=== PATIENT | female | born 1985 | race Caucasian/White ===

== ENCOUNTER 2023-11-22 17:20 | Emergency (ER) | payer BC, SELFPAY ==
[2023-11-22] VITALS (8 sets, daily range): BP systolic 99–135; BP diastolic 56–91; BMI 23.9
[2023-11-22 17:49] LABS: % Basophils 0.4 % (0-2); % Eosinophils 1.9 % (0-6); % Immature Granulocytes 0.1 % (0-0.5); % Lymphocytes 32.1 % (20.5-51.1); % Monocytes 8.8 % (1.7-9.3); % Neutrophils 56.7 % (42.2-75.2); Absolute Eosinophils 0.1 10^3/uL (0-0.7); Absolute Lymphocytes 2.2 10^3/uL (1.2-3.4); Absolute Monocytes 0.6 10^3/uL (0.1-0.6); Absolute Neutrophils 3.8 10^3/uL (1.4-6.5); Hematocrit 34.9 % (37.0-47.0); Hemoglobin 12.4 g/dL (12.0-16.0); Mean Corp Hgb Conc. 35.5 g/dL (33.0-37.0); Mean Corpuscular Hgb 31.2 pg (27.0-31.0); Mean Corpuscular Volume 87.9 fL (81.0-99.0); Mean Platelet Volume 10.3 fL (7.4-10.4); Nucleated Red Blood Cells % 0 %; Platelet Count 225 10^3/uL (130-400); Red Blood Cell Count 3.97 10^6/uL (4.20-5.40); Red Cell Dist. Width 12.4 % (11.5-14.5); White Blood Cell Count 6.7 10^3/uL (4.8-10.8)
[2023-11-22 18:04] LABS: HCG, Serum Qualitative Screen Negative
[2023-11-22 18:05] LABS: ALT (SGPT) 15 U/L (0-35); AST (SGOT) 20 U/L (14-36); Albumin 4.6 g/dl (3.5-5.0); Alkaline Phosphatase 60 U/L (38-126); Blood Urea Nitrogen 13 mg/dl (7-17); Calcium 9.7 mg/dl (8.4-10.2); Carbon Dioxide 22 mmol/L (22-30); Chloride 104 mmol/L (98-107); Glucose 89 mg/dl (70-99); Potassium 4.3 mmol/L (3.5-5.1); Sodium 141 mmol/L (135-145); Total Bilirubin 0.6 mg/dl (0.2-1.3); Total Protein 6.9 g/dl (6.3-8.2); eGFR > 60.00
[2023-11-22 18:06] LABS: Lipase 88 U/L (23-300)
[2023-11-22 18:21] LABS: Troponin I < 0.012 ng/ml
--- NOTE | 2023-11-22 20:10 | ED.GENMED ---
History of Present Illness
General
Chief Complaint: Cardiac Symptoms
Source: patient and family
Exam Limitations: none
Time Seen by Provider: 11/22/23 19:40
Nursing documentation reviewed up to this point in time: agreed with
History of Present Illness
History of Present Illness:
37-year-old female sharp pain in her mid chest does into her back not into her jaw or arm feels dizzy mildly short of breath no calf pain no history of DVT PE does not take control she does smoke no prior episodes does have a 3-year-old,
denies any injury lifting hammer her
Past History
Past History
ED Past Medical History: Psychiatric (Anxiety, PTSD) and Other (Kidney stones); Negative Asthma, HTN, Hypercholesterolemia or NIDDM
ED Past Surgical History: None
Social History
Tobacco: Smoker
Alcohol: Occasional
Drug: None
Personal:
Living: with family
Review of Systems
Review of Systems
All Other Systems: Not applicable
Constitutional: Denies fever or fatigue
Respiratory: Reports trouble breathing
Cardiac: Reports chest pain
ABD/GI: Reports no symptoms
: Reports no symptoms
Musculoskeletal: Reports no symptoms
Skin: Reports no symptoms
Neurological: Reports no symptoms
Endocrine: Reports no symptoms
Hematologic/Lymphatic: Reports no symptoms
Phy Exam
Physical Exam
Physical Exam:
Physical Exam
General: no apparent distress, not acutely ill
Neck: no jaundice
Heart: s1/s2 regular rate and rhythm, no murmur. equal radial pulses.
Lungs: no acute respiratory distress. clear bilaterally
Abdomen: non tender
Neuro: alert and oriented. no focal neurological deficits
Skin: no rash
Psychiatric: well kept. interactive and cooperative
Extremities: no edema. no calf tenderness.
Course
Orders/Labs/Results
Orders:
Orders
11/22/23 17:24
Test Result ONCE
CR Chest - 2 Views Urgent
Comment:
Reason For Exam: chest pain since yesterday
11/22/23 17:38
Complete Blood Count/With Diff Urgent
Comprehensive Metabolic Panel Urgent
HCG, Serum Qualitative Screen Urgent
Lipase Urgent
Troponin I Urgent
11/22/23 19:56
Ketorolac [Toradol] 30 mg IV NOW STA
11/22/23 19:57
CT Chest Pe Study Urgent
Comment:
Reason For Exam: pleursiy
11/22/23 20:10
ECG [Electrocardiogram (*1)] Urgent
Reason for Study: Chest Pain
Cardiology Consult: Unknown
11/22/23 20:11
EKG- Treatment ONCE
11/22/23 22:11
HYDROmorphone [Dilaudid] 0.5 mg IV NOW STA
Mag Hydrox/Al Hydrox/Simeth [Maalox] 30 ml Phenobarb/Hyoscy/Atropine/Scop [] 10 ml PO NOW
Pantoprazole [Protonix IV] 40 mg IV NOW STA
11/22/23 22:24
Mag Hydrox/Al Hydrox/Simeth [Maalox] 30 ml .ROUTE .STK-MED ONE
Phenobarb/Hyoscy/Atropine/Scop [] 10 ml .ROUTE .STK-MED ONE
11/22/23 22:57
Troponin I Urgent
Abnormal Lab Results
11/22/23
17:38
RBC 3.97 L 10^6/uL
(4.20-5.40)
Hct 34.9 L %
(37.0-47.0)
MCH 31.2 H pg
(27.0-31.0)
11/22/23 17:38
11/22/23 17:38
Vital Signs
Initial and Last Documented VS:
Initial Vital Signs
Temp Pulse Resp BP Pulse Ox
98.3 F 86 20 135/91 99
11/22/23 17:22 11/22/23 17:22 11/22/23 17:22 11/22/23 17:22 11/22/23 17:22
Last Documented Vital Signs
Temp Pulse Resp BP Pulse Ox
98.3 F 84 20 111/77 99
11/22/23 17:22 11/22/23 23:01 11/22/23 23:01 11/22/23 23:01 11/22/23 23:01
MDM/Problems Addressed
Differential Diagnosis Includes:
Pleurisy, PE, dissection ACS pericarditis pancreatitis
MDM/Problems Addressed:
Chest pain
Chronic conditions affecting care:
Smoker
Acute Exacerbation and/or Progression of Chronic Illness:
Smoker
*Radiology
Radiology exam reviewed: preliminary read by ED provider
*Pulse Oximetry
Patient hypoxic: no
*EKG
Interpreted by ED Provider?: Yes
Interpretation: abnormal
Comparison EKG: no comparison EKG present
Heart Rate: 78
Rate: normal
Rhythm: sinus
Ischemia: non-specific ST changes
*[employer] Interpretation
Rate: normal
Interpretation: normal
Heart Rate: 78
Rhythm: sinus
*Critical Care Note
Total Time (30-74mins, 75-104mins- exclusive of procedures): Not Applicable
Update Note
Update Note:
Update CT chest report noted
10:30 PM patient still with pain sharp not much relief with Toradol she is able to drink juice without any pain will try to get her comfortable, check second troponin
On exam she is nontoxic her abdomen is soft and nontender no reproducibility of her chest pain
11 PM patient feeling better, second troponin EKG have been sent and ordered
ED Attending Note
-
Portions of this chart may have been created with voice recognition software.� Occasional wrong word or��sound alike� substitutions may have occurred due to the inherent limitations of voice recognition software.
Discharge Plan
Departure
Patient Disposition: Home (Routine Discharge)
Date of Disposition: 11/22/23
Time of Disposition: 23:07
Patient with high blood pressure during this ER visit?: No
Condition: Good
Discharge Problem:
Chest pain due to GERD
Instructions: Chest Pain (DC), Acid reflux and GERD in adults
Prescriptions:
New
alum-mag hydroxide-simeth [Maalox Advanced] 200-200-20 mg/5 mL suspension
15 ml PO QID PRN (Reason: dyspepsia) Qty: 3000 0RF
pantoprazole [Protonix] 40 mg tablet,delayed release (DR/EC)
40 mg PO DAILY Qty: 30 0RF
No Action
tamsulosin [Flomax] 0.4 mg capsule
0.4 mg PO HS Qty: 7 0RF
oxycodone-acetaminophen [Percocet] 5-325 mg tablet
1 tab PO Q4HPRN PRN (Reason: pain) Qty: 17 0RF
bupropion HCl [Wellbutrin SR] 150 mg Tablet Sustained-Release 12 Hr
150 mg PO DAILY
escitalopram oxalate [Lexapro] 20 mg Tablet
20 mg PO DAILY
lorazepam 0.5 mg tablet
0.5 mg PO BID PRN (Reason: urinary tract pain) Qty: 10 0RF
alprazolam [Xanax] 0.5 mg tablet
0.5 mg PO BID PRN (Reason: urinary tract pain) Qty: 10 0RF
Referrals:
Barb Clemons MD [Family Provider] -
Georges Martino MD [Active] - Next open appointment
Interventions
Interventions:
*Risk Screen - Suicide Last Done: 11/22/23 17:22
*General Assessment Last Done: 11/22/23 17:22
*Neglect/Abuse Screening Last Done: 11/22/23 17:22
ED- Fall Risk Assessment Last Done: 11/22/23 20:20
ED- Pulmonary Assessment Last Done: 11/22/23 20:20
ED- Cardiac Assessment Last Done: 11/22/23 20:20
Discharge Date and Time
Print Language: [place]
[2023-11-22] MEDS: TORADOL 30 MG IV (20:26)
[2023-11-22] MEDS: MAALOX 40 PO (22:28)
[2023-11-22] MEDS: DILAUDID 0.5 MG IV (22:30)
[2023-11-22] MEDS: PROTONIX IV 40 MG IV (22:31)
[2023-11-22 23:31] LABS: Troponin I < 0.012 ng/ml
[2023-11-23 00:03] VITALS: BP 107/71
== END 2023-11-23 00:30 | disposition home or self-care (01) ==
LOC: EMR 17:20
PROVIDERS: Physician Assistant; EMERGENCY PHYSICIAN Emergency Medicine; FAMILY PHYSICIAN Internal Medicine
DX: R07.89 Other chest pain (principal); K21.9 Gastro-esophageal reflux disease without esophagitis; F41.9 Anxiety disorder, unspecified; F43.10 Post-traumatic stress disorder, unspecified; F17.200 Nicotine dependence, unspecified, uncomplicated; Z87.442 Personal history of urinary calculi
CPT/HCPCS: 99284; 96374; 96375; 71046; 71275; 80053; 83690; 84484; 84703; 85025; 93005; Q9967